=== PATIENT | female | born 1935 | race Caucasian/White ===

== ENCOUNTER → 2020-10-14 | Outpatient (CLI) | payer MEDICARE | END | disposition home or self-care (01) | LOC: ROC 07:38 | PROVIDERS: ATTEND Radiology Radiation Oncology | DX: C04.0 Malignant neoplasm of anterior floor of mouth (principal); F17.210 Nicotine dependence, cigarettes, uncomplicated; I10 Essential (primary) hypertension; E78.00 Pure hypercholesterolemia, unspecified; E03.9 Hypothyroidism, unspecified; Z90.49 Acquired absence of other specified parts of digestive tract | CPT/HCPCS: 99214; G0463 ==

== ENCOUNTER 2020-11-10 17:00 | Emergency (ER) | payer MEDICARE ==
[~2020-11-10] VITALS: Ht 154.9 cm; Wt 55.7 kg
[2020-11-10 17:09] VITALS: BP 105/54
--- NOTE | 2020-11-10 17:14 | NUR ---
[employer] FABRICATOR: PLACED ON 2L NC.
[2020-11-10 17:45] LABS: BASOPHILS % (AUTO) 1 % (0-1); EOSINOPHILS % (AUTO) 1 % (1-7); LYMPHOCYTES % (AUTO) 27 % (22-44); MEAN CORPUSCULAR HEMOGLOBIN 34.4 pg (27.0-34.8); MEAN CORPUSCULAR HGB CONC 34.2 g/dL (32.4-35.8); MEAN PLATELET VOLUME 7.2 fL (7.4-10.4); MONOCYTES % (AUTO) 9 % (2-9); NEUTROPHILS % (AUTO) 62 % (42-75); PLATELET COUNT 282 x10^3/uL (130-400); RED BLOOD COUNT 4.15 x10^6/uL (3.82-5.3); RED CELL DISTRIBUTION WIDTH 13.7 % (9.6-15.2)
[2020-11-10 18:00] LABS: ALANINE AMINOTRANSFERASE 21 U/L (12-78); ALBUMIN 3.8 g/dL (3.4-5.0); ANION GAP 8 mmol/L (5-15); CALCIUM 10.3 mg/dL (8.5-10.1); CHLORIDE 98 mmol/L (98-107); CREATININE 0.62 mg/dL (0.55-1.02)
[2020-11-10 18:02] LABS: ALKALINE PHOSPHATASE 97 U/L (45-117); BILIRUBIN,TOTAL 0.3 mg/dL (0.2-1.0); TOTAL PROTEIN 8.3 g/dL (6.4-8.2)
--- NOTE | 2020-11-10 20:59 | NUR ---
ext js developer: attempted to call patient from lobby to room, no answer in lobby
--- NOTE | 2020-11-10 21:18 | NUR ---
clinical laboratory scientist: attempted to call patient back from lobby to room, no answer in lobby
== END 2020-11-10 21:57 | disposition left against medical advice (07) ==
LOC: ED 20:51
DX: E87.1 Hypo-osmolality and hyponatremia (principal)
CPT/HCPCS: 36415; 80053; 85025; 99283

== ENCOUNTER 2021-02-12 12:35 | Emergency (ER) | payer MEDICARE ==
[~2021-02-12] VITALS: Ht 162.6 cm; Wt 55.0 kg
--- NOTE | 2021-02-12 12:58 | NUR ---
Hospice patient on lots of opiates for pain control had trip and fall and now pain to left flank/rib may have hit head pt not sure. No obvious s/s head/neck trauma. Given 200 fentenyl in route. Required o2 suppl.
--- NOTE | 2021-02-12 13:35 | NUR ---
Lab drawing blood, waiting for xrays,ekg,urine. Daughter at bedside, will continue to monitor.
--- NOTE | 2021-02-12 13:36 | NUR ---
PXR here now.
[2021-02-12 13:51] LABS: BASOPHILS % (AUTO) 0 % (0-1); EOSINOPHILS % (AUTO) 0 % (1-7); LYMPHOCYTES % (AUTO) 5 % (22-44); MEAN CORPUSCULAR HEMOGLOBIN 33.1 pg (27.0-34.8); MEAN CORPUSCULAR HGB CONC 33.5 g/dL (32.4-35.8); MEAN PLATELET VOLUME 7.3 fL (7.4-10.4); MONOCYTES % (AUTO) 5 % (2-9); NEUTROPHILS % (AUTO) 89 % (42-75); PLATELET COUNT 247 x10^3/uL (130-400); RED CELL DISTRIBUTION WIDTH 13.7 % (9.6-15.2)
[2021-02-12 14:00] LABS: ALBUMIN 3.5 g/dL (3.4-5.0); ANION GAP 7 mmol/L (5-15); CHLORIDE 98 mmol/L (98-107)
[2021-02-12 14:04] LABS: ALANINE AMINOTRANSFERASE 45 U/L (12-78); ALKALINE PHOSPHATASE 78 U/L (45-117); BILIRUBIN,TOTAL 0.5 mg/dL (0.2-1.0); CREATININE 0.71 mg/dL (0.55-1.02); TOTAL PROTEIN 7.5 g/dL (6.4-8.2)
--- NOTE | 2021-02-12 14:27 | NUR ---
To CT via [facility]
--- NOTE | 2021-02-12 14:42 | NUR ---
pt return to room from ct
--- NOTE | 2021-02-12 15:01 | NUR ---
REPORT RECEIVED, CARE ASSUMED.
--- NOTE | 2021-02-12 15:40 | NUR ---
ASSIST PT TO BR, GAIT SLIGHTLY UNSTEADY. PT ABLE TO PROVIDE URINE SPECIMAN. PT AND PTS SON UPDATED ON POC, "WAITING FOR TEST RESULTS. NO NEEDS EXPRESSED AT THIS TIME.
--- NOTE | 2021-02-12 15:49 | NUR ---
ANTISQUEAK FILLER AT BEDSIDE TO DRAW BLOOD CULTURES.
--- NOTE | 2021-02-12 15:55 | NUR ---
ZITHROMAX REQUESTED FROM PHARMACY
[2021-02-12] MEDS ORDERED: AZITHROMYCIN 500 MG TABLET PO ONE (16:00)
[2021-02-12] MEDS ORDERED: CEFTRIAXONE 1,000 MG in DEXTROSE 5% 50 ML IVPB ONE (16:00)
[2021-02-12 16:04] LABS: MICROSCOPIC INDICATED
--- NOTE | 2021-02-12 16:32 | NUR ---
PT TO CT VIA [facility]
[2021-02-12] MEDS ORDERED: AZITHROMYCIN 250 MG TABLET ONE (16:39)
[2021-02-12] MEDS ORDERED: OMNIPAQUE 350 MG/ML, 100ML BOTTLE ONE (16:46)
--- NOTE | 2021-02-12 16:46 | NUR ---
PT RETURN TO ROOM FROM CT
--- NOTE | 2021-02-12 17:47 | NUR ---
DR ALEJANDRE AT BEDSIDE TO RE-EVAL PT
--- NOTE | 2021-02-12 18:23 | NUR ---
PT INSTRUCTED AND DEMONSTRATED ON IS USE. TO USE 10 PER HOUR WHILE AWAKE. DISCUSSED WITH PT AND HER SON, USING A PILLOW TO SPLINT LEFT SIDE WITH COUGHING. UNDERSTANDING VERBALIZED. IV DC'D WITH CANNULA INTACT. REVIEWED DC INSTRUCTIONS WITH PT AND PTS SON. UNDERSTANDING VERBALIZED. PT LEFT VIA W/C
[2021-02-12 18:25] VITALS: BP 159/61
== END 2021-02-12 18:27 | disposition home or self-care (01) ==
LOC: ED 12:40
DX: S22.42XA Multiple fractures of ribs, left side, initial encounter for closed fracture (principal); S09.90XA Unspecified injury of head, initial encounter; D72.829 Elevated white blood cell count, unspecified; I10 Essential (primary) hypertension; F17.210 Nicotine dependence, cigarettes, uncomplicated; Z90.49 Acquired absence of other specified parts of digestive tract; W01.0XXA Fall on same level from slipping, tripping and stumbling without subsequent striking against object, initial encounter; Y93.89 Activity, other specified; Y92.009 Unspecified place in unspecified non-institutional (private) residence as the place of occurrence of the external cause; Y99.8 Other external cause status
CPT/HCPCS: 36415; 70450; 71045; 71260; 74177; 80053; 81001; 83605; 85025; 87040; 87086; 93005; 96365; 99285; J0696; Q9967